=== PATIENT | male | born 1975 | race African-American/Black ===

== ENCOUNTER 2016-07-30 13:47 | Emergency (ER) | payer SELFPAY | END 2016-07-30 14:24 | disposition home or self-care (01) | LOC: NAV ERS 13:47 | DX: M54.32 Sciatica, left side (principal); I10 Essential (primary) hypertension; F17.210 Nicotine dependence, cigarettes, uncomplicated | CPT/HCPCS: 99283 ==

== ENCOUNTER 2016-08-19 17:44 | Emergency (ER) | payer SELFPAY ==
[2016-08-19] MEDS ORDERED: Cyclobenzaprine 10 MG TAB ONE (18:03)
[2016-08-19] MEDS ORDERED: Ibuprofen 800 MG TAB ONE (18:03)
== END 2016-08-19 18:47 | disposition home or self-care (01) ==
LOC: NAV ERS 17:44
DX: S16.1XXA Strain of muscle, fascia and tendon at neck level, initial encounter (principal); S39.012A Strain of muscle, fascia and tendon of lower back, initial encounter; I10 Essential (primary) hypertension; F17.210 Nicotine dependence, cigarettes, uncomplicated; V89.2XXA Person injured in unspecified motor-vehicle accident, traffic, initial encounter
CPT/HCPCS: 99283